=== PATIENT | male | born 1940 | race Caucasian/White ===

== ENCOUNTER → 2016-06-28 | Outpatient (CLI) | payer MEDICARE, OTHER ==
[~2016-06-28] MED LIST: ACET1TAB43 PO; ASCO500T20 PO; CIPR500T78 PO; DOXA4TAB2 PO; MULT-1029 PO; NAPR220C11 PO; NF-TYLARTH PO; SILD25TA PO
--- OUTSIDE RECORDS SUMMARY | 2016-06-28 10:19 | XMS REPORT | Continuity of Care Document ---
Author Author [facility] Organization [facility] Address Unknown Phone Unavailable Allergies Active Description Code Type Severity Reaction Onset Reported/Identified Relationship to Patient Clinical Status Yes Sulfa (Sulfonamide Antibiotics) [id number] Drug Allergy Unknown HIVES AND ITCHI 03/18/2014 Medications Problems Date Dx Coded Attending Type Code Diagnosis Diagnosed By 03/24/2014 BELTRAN RIVERA MDANE E Ot 185 03/24/2014 BELTRAN RIVERA MDANE E Ot 185 03/24/2014 NICOLE BANKS PRATIMA E Ot V72.83 03/24/2014 NICOLE BANKS PRATIMA E Ot V74.8 03/24/2014 BELTRAN RIVERA MDANE E Ot 185 04/07/2014 NICOLE BANKS PRATIMA E Ot 185 04/07/2014 NICOLE BANKS PRATIMA E Ot V72.83 04/07/2014 NICOLE BANKS PRATIMA E Ot V74.8 04/19/2014 NICOLE BANKS PRATIMA E Ot 185 04/21/2014 NICOLE BANKS PRATIMA E Ot 185 04/21/2014 NICOLE BANKS, PRATIMA E Ot 185 04/21/2014 NICOLE BANKS, PRATIMA E Ot 185 04/23/2014 NICOLE BANKS, PRATIMA E Ot 185 06/10/2014 NICOLE BANKS, PRATIMA E Ot 185 06/21/2014 NICOLE BANKS, PRATIMA E Ot 185 12/14/2014 NICOLE BANKS, PRATIMA E Ot 185 12/14/2014 NICOLE BANKS, PRATIMA E Ot 185 12/15/2014 NICOLE BANKS PRATIMA E Ot 185 12/15/2014 NICOLE BANKS, PRATIMA E Ot 185 12/28/2014 NICOLE BANKS, PRATIMA E Ot 185 01/04/2015 NICOLE BANKS, PRATIMA E Ot 185 01/04/2015 NICOLE BANKS, PRATIMA E Ot 185 01/07/2015 NICOLE BANKS PRATIMA E Ot 185 01/19/2015 NICOLE BANKS PRATIMA E Ot 185 03/24/2015 NICOLE BANKS PRATIMA E Ot 185 07/14/2015 NICOLE BANKS PRATIMA E Ot C61 01/20/2016 PRATIMA RIVERA MD Ot C61 MALIGNANT NEOPLASM OF PROSTATE Procedures Results Test Result Range Prostate specific ag [mass/volume] in serum or plasma - 12/27/15 10:51 Prostate specific ag [mass/volume] in serum or plasma 0.23 % 0.00-4.00 Encounters ACCT No. Visit Date/Time Discharge Status Pt. Type Provider Facility Loc./Unit Complaint [id number] 12/28/2014 10:14:00 2014 23:59:59 CLS Outpatient PRATIMA RIVERA MD [facility] ONC [id number] 12/15/2014 12:51:00 2014 23:59:59 CLS Outpatient PRATIMA RIVERA MD [facility] ONC [id number] 06/21/2014 09:49:00 2014 23:59:59 CLS Outpatient PRATIMA RIVERA MD [facility] ONC [id number] 01/19/2014 08:30:00 2013 00:01:00 DIS Outpatient PRATIMA RIVERA MD [facility] ONC [id number] 03/24/2014 11:17:00 2013 17:53:00 DIS Outpatient PRATIMA RIVERA MD [facility] SDC [id number] 03/18/2014 10:13:00 2013 23:59:59 CLS Outpatient PRATIMA RIVERA MD [facility] PREOP [id number] 12/27/2015 10:42:00 ACT Outpatient PRATIMA RIVERA MD [facility] ONC [id number] 06/23/2015 14:36:00 ACT Outpatient PRATIMA RIVERA MD [facility] ONC
== END ==
LOC: ONC 10:15
PROVIDERS: ATTEND Radiology Radiation Oncology
DX: C61 Malignant neoplasm of prostate (principal)
CPT/HCPCS: 36415; 84153

== ENCOUNTER → 2016-12-18 | Outpatient (CLI) | payer MEDICARE, OTHER | LOC: ONC 10:49 | PROVIDERS: ATTEND Radiology Radiation Oncology | DX: C61 Malignant neoplasm of prostate (principal) | CPT/HCPCS: 84153 ==

== ENCOUNTER → 2017-06-20 | Outpatient (CLI) | payer MEDICARE | LOC: ONC 11:12 | PROVIDERS: ATTEND Radiology Radiation Oncology | DX: C61 Malignant neoplasm of prostate (principal) | CPT/HCPCS: 36415; 84153 ==

== ENCOUNTER → 2018-07-02 | Outpatient (CLI) | payer MEDICARE | LOC: ONC 11:14 | PROVIDERS: ATTEND Radiology Radiation Oncology | DX: C61 Malignant neoplasm of prostate (principal) | CPT/HCPCS: 36415; 84153 ==

== ENCOUNTER → 2019-06-24 | Outpatient (CLI) | payer MEDICARE | LOC: ONC 13:19 | PROVIDERS: ATTEND Radiology Radiation Oncology | DX: C61 Malignant neoplasm of prostate (principal) | CPT/HCPCS: 84153 ==

== ENCOUNTER → 2020-07-07 | Outpatient (CLI) | payer MEDICARE | LOC: ONC 10:53 | PROVIDERS: ATTEND Radiology Radiation Oncology | DX: C61 Malignant neoplasm of prostate (principal) | CPT/HCPCS: 84153 ==

== ENCOUNTER → 2021-07-20 | Outpatient (CLI) | payer MEDICARE | LOC: ONC 11:19 | PROVIDERS: ATTEND Radiology Radiation Oncology | DX: C61 Malignant neoplasm of prostate (principal) | CPT/HCPCS: 36415; 84153 ==

== ENCOUNTER 2021-07-22 11:13 | Inpatient (IN) | payer MEDICARE ==
[~2021-07-22] VITALS: Ht 170 cm; Wt 75.3 kg
[2021-07-22] MEDS ORDERED: ONDANSETRON 4 MG/2 ML (SDV) Z0FRAN IV PRN (11:15)
[2021-07-22] MEDS ORDERED: polyethylene glycoL POWDER 17 GM (MIRALAX) PACK PO PRN (11:15)
[2021-07-22] MEDS ORDERED: MELATONIN 3 MG TABLET PO PRN (11:15)
[2021-07-22] MEDS ORDERED: ANTACID SUSP 30 ML UDC (MYLANTA) PO PRN (11:15)
[2021-07-22] MEDS ORDERED: NS IV 1000 ML 1,000 ML IV SCH ×2 (11:15→12:45)
[2021-07-22] MEDS ORDERED: ACETAMINOPHEN 325 MG TABLET PO PRN (11:15)
[2021-07-22] MEDS ORDERED: ONDANSETRON 4 MG (ZOFRAN) ORAL DISSOLVE TAB PO PRN (11:15)
[2021-07-22] MEDS ORDERED: HEParin 1000 UNIT/ML (10ML VIAL) FOR BOLUS ONE (11:42)
[2021-07-22] MEDS ORDERED: VERAPAMIL 5 MG/2 ML (CALAN) VIAL IV ONE (11:42)
[2021-07-22] MEDS ORDERED: LIDOCAINE 2% 20 ML (XYLOCAINE) VIAL ONE (11:42)
[2021-07-22] MEDS ORDERED: MIDAZOLAM 5 MG/5 ML (VERSED) VIAL ONE (11:42)
[2021-07-22] MEDS ORDERED: fentaNYL INJ 100 MCG/2 ML AMP ONE (11:42)
[2021-07-22] MEDS ORDERED: NS IV 1000 ML 1,000 ML ONE (11:43)
[2021-07-22] MEDS ORDERED: NITRO DRIP 25000 MCG/D5W 250 ML IV ONE (11:43)
[2021-07-22] MEDS ORDERED: HEParin (CATH LAB) 2,000 ML IV ONE (11:44)
--- NOTE | 2021-07-22 12:03 | History & Physical-Hospitalist ---
History of Present Illness HPI/Chief Complaint Pt is an 80yoCM with a PMH of prostate cancer who presented to outside ER due to chest tightness and shortness of breath. He states that two weeks ago he was going out to feed his bulls with a 5 gallon bucket of feed when it was snowing and he got very winded and noticed significant chest tightness. It resolved with rest but continued to happen intermittently.This morning he got the same symptoms by just walking to the bathroom around 3am prompting him to seek evaluation. He was found to have an elevated HS troponin at 162 and was transferred here for cardiac evaluation. He denies any symptoms now and states they again resolved with rest. He denies any radiation of the pain,nausea, shoulder pain, weakness, or diaphoresis. Source: patient Date Seen 07/22/21 Time Seen by a Provider: 11:58 Attending Physician Jodi Glynn MD PCP Ezra Salvador MD Referring Physician Date of Admission Jul 22, 2021 at 11:19 Home Medications & Allergies Home Medications Reviewed patient Home Medication Reconciliation performed by pharmacy medication reconciliations emission technician and/or nursing. Patients Allergies have been reviewed. Allergies Allergies Coded Allergies Sulfa (Sulfonamide Antibiotics) (Unverified Allergy, Unknown, HIVES AND ITCHING, 03/18/14) Past Xqrhcsa-Pmwelr-Isgvxs Hx Patient Social History Marrital Status: Smokeless type used: Chew Smokeless Tobacco Frequency: Former User Immunizations Up To Date Date of Influenza Vaccine: Feb 10, 2014 Past Medical History Surgeries: Orthopedic (shoulder surgery) Prostate Family Medical History Reviewed Nursing Family Hx No Pertinent Family Hx Review of Systems Constitutional: No chills, No fever EENTM: no symptoms reported Respiratory: dyspnea on exertion, short of breath Cardiovascular: chest pain; No edema, No Hx of Intervention, No palpitations, No syncope Gastrointestinal: No abdominal pain, No dysphagia, No nausea, No vomiting Genitourinary: no symptoms reported Musculoskeletal: no symptoms reported Skin: no symptoms reported Psychiatric/Neurological: No Symptoms Reported Physical Exam Physical Exam Vital Signs Vital Signs - First Documented 07/22/21 07/22/21 12:55 16:21 Temp 36.8 Pulse 73 Resp 23 B/P (MAP) 122/72 Pulse Ox 94 O2 Delivery Room Air Capillary Refill : Height, Weight, BMI Height: 5'7.00" Weight: 166lbs. oz. 75.597142tz; BMI Method: General Appearance: No Apparent Distress, WD/WN HEENT: PERRL/EOMI, Moist Mucous Membranes; No Scleral Icterus (L), No Scleral Icterus (R) Neck: Normal Inspection, Supple Respiratory: Lungs Clear, No Accessory Muscle Use, No Respiratory Distress Cardiovascular: Regular Rate, Rhythm, No JVD, No Murmur Gastrointestinal: Normal Bowel Sounds, Non Tender, Soft Extremity: No Calf Tenderness, No Pedal Edema Neurologic/Psychiatric: Alert, Oriented x3, Normal Mood/Affect Results Results/Procedures Labs Patient resulted labs reviewed. 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
--- NOTE | 2021-07-22 12:52 | Consultation-Cardiology ---
HPI-Cardiology Cardiology Consultation Date of Consultation 07/22/21 Date of Admission Time Seen by Provider: 12:46 Indication: Chest pain HPI 80 years old gentleman with history of prostate cancer. Has been having dyspnea on exertion, chest pressure, was significant this morning and went to the emergency room, work-up showed normal EKG, high-sensitivity troponin [id number], he was transferred from our hospital to our emergency room. On my evaluation he reported that he is feeling better, no active chest pain, no shortness of breath at this time but has been having dyspnea on exertion. No syncope or near syncopal episodes. No claudications. Home Medications & Allergies Allergies: Coded Allergies: Sulfa (Sulfonamide Antibiotics) (Unverified Allergy, Unknown, HIVES AND ITCHING, 03/18/14) Home Medication List Reviewed: Yes CCI-Zrlmmq-Zhrmzz Hx Patient Social History Marital Status: Immunizations Up To Date Date of Influenza Vaccine: Feb 10, 2014 Past Medical History Discussed below Family Medical History Significant Family History: No Pertinent Family Hx Family Medical Hx Noncontributory Review of Systems-General Review of Systems Constitutional: see HPI; No chills, No fever EENTM: see HPI, no symptoms reported Respiratory: see HPI, dyspnea on exertion, short of breath Cardiovascular: see HPI, chest pain; No edema, No Hx of Intervention, No palpitations, No syncope Gastrointestinal: see HPI; No abdominal pain, No dysphagia, No nausea, No vomiting Genitourinary: no symptoms reported, see HPI Musculoskeletal: no symptoms reported, see HPI Skin: no symptoms reported, see HPI Psychiatric/Neurological: No Symptoms Reported, See HPI Reviewed Test Results Reviewed Test Results Lab Labs from [facility] reviewed Normal creatinine Troponin I 15 high-sensitivity Physical Exam Physical Exam Vital Signs Capillary Refill : Height, Weight, BMI Height: 5'7.00" Weight: 166lbs. oz. 75.714668ba; BMI Method: General Appearance: No Apparent Distress, WD/WN Eyes: Bilateral Eye Normal Inspection, Bilateral Eye PERRL, Bilateral Eye EOMI HEENT: PERRL/EOMI, Moist Mucous Membranes; No Scleral Icterus (L), No Scleral Icterus (R) Neck: Normal Inspection, Supple, Carotid Bruit (Left side carotid bruit) Respiratory: Lungs Clear, No Accessory Muscle Use, No Respiratory Distress Cardiovascular: Regular Rate, Rhythm, No JVD, No Murmur Gastrointestinal: Normal Bowel Sounds, Non Tender, Soft Back: Normal Inspection, No CVA Tenderness, No Vertebral Tenderness Extremity: No Calf Tenderness, No Pedal Edema Neurologic/Psychiatric: Alert, Oriented x3, Normal Mood/Affect Skin: Normal Color, Warm/Dry Lymphatic: No Adenopathy A/P-Cardiology Admission Diagnosis Non-ST elevation myocardial infarction Coronary artery disease Hypertension Hyperlipidemia Assessment/Plan Non-ST elevation myocardial infarction, coronary artery disease Cardiac catheterization was done urgently showing severe multivessel coronary artery disease, arrangement to transfer to a tertiary care center for evaluation for CABG Starting aspirin and Lovenox Hypertension, starting low-dose beta-blockers and evaluate tolerance and response Hyperlipidemia, starting Lipitor 80 mg daily History of prostate cancer History of erectile dysfunction, using Viagra Shortness of breath, probably angina equivalent TOÑITO SAINZ MD Jul 22, 2021 12:52
--- NOTE | 2021-07-22 13:01 | Cardiac Cath Report ---
Cardiac Cath Report Physician (s)/Director Network Development (s) Physician TOÑITO SAINZ MD Pre-Procedure Diagnosis Pre-Procedure Diagnosis: Acute myocardial infarction Post-Procedure Note Procedure Start Date: Jul 22, 2021 Name of Procedure: Left heart catheterization Left ventriculogram Aortic arch angiogram Findings/Procedure Note PROCEDURE NOTE: 80 years old gentleman with no significant past medical history admitted with non-ST elevation myocardial infarction, transferred from [facility]. Emergency cardiac catheterization was advised. After explaining the procedure to the patient, all pros and cons were explained, all questions were answered. The patient signed the consent and then he was placed on the cardiac catheterization laboratory. Groin was prepped SL fashion local anesthesia was used. Sheath placed in the right radial artery, [place] catheter was prolapsed to the left ventricular cavity, left ventriculogram was done, pressure was measured, pullback LV LV to aorta was done, engaged the left coronary system and angiogram was done. Catheter was exchanged and used Amie right catheter and engaged the right coronary system and angiogram was done. Pigtail was advanced to the aortic arch and aortic arch angiogram was done. At the end of the procedure the sheath was removed. Vascular band was used FINDINGS: Hemodynamics LV 87/4, end-diastolic pressure of 4 Aorta 85/59 mean of 69 ANATOMY: Left Main is free of obstructive disease Left Anterior Descending has severe stenosis at the proximal and midportion involving the diagonal branch. Left Circumflex has multiple segment of severe stenosis at the proximal circumflex artery, moderate disease distally Right Coronary Artery has multiple segment of severe stenosis at the proximal mid and distal portion LV Gram was done showing normal left ventricular size and systolic function estimate ejection fraction 60% Aorta evaluation done with aortic arch angiogram showing normal aortic arch, no dissection or aneurysm, normal origin of the brachiocephalic artery with mild calcification and tortuosity, mild calcification in the proximal left carotid artery, normal left subclavian artery. CONCLUSION: 1. Severe multivessel disease involving long segment in the proximal LAD extending to the midportion involving diagonal branch, severe stenosis in the proximal circumflex artery, multiple segment of severe stenosis in the proximal and mid and distal right coronary artery 2. Normal left ventricular size and systolic function estimate ejection fraction 60% 3. Normal aortic arch, no dissection or aneurysm was seen, calcification in the proximal portion of the brachiocephalic artery and left carotid artery, nonobstructive disease DISCUSSION AND RECOMMENDATION: Patient was started on aspirin, Lovenox, metoprolol and Lipitor, arrangement for transfer for evaluation for CABG HOSPITAL COURSE: Patient was admitted to ICU and transferred to the Manager Reporting urgently for angiogram, findings were described above. I contacted Dr. BRIONES in [facility] and will arrange to transfer for evaluation for CABG. After discussing the management plan with Dr. briones, he reviewed his cath films and recommended transferring him to a higher level of care, [place] or [place]. I contacted [facility] and arrange for a transfer for evaluation for CABG with Dr. Terry Anesthesia Type: Conscious Sedation Estimated blood loss (mL): 25 ml Contrast Amount: 55 ml Total Radiation Dose: 450 mGy Post-Procedure Diagnosis Post-operative diagnosis: FINAL DIAGNOSIS Non-ST elevation myocardial infarction Coronary artery disease Peripheral arterial disease with carotid plaques Hyperlipidemia (1) NSTEMI (non-ST elevated myocardial infarction) TOÑITO SAINZ MD Jul 22, 2021 13:01
[2021-07-22] MEDS ORDERED: ENOXAPARIN 80 MG/0.8 ML (LOVENOX) SYR SC SCH (15:00)
[2021-07-22] MEDS ORDERED: meTOprolol TARTRATE 25 MG (LOPRESSOR) TABLET PO SCH (21:00)
[2021-07-23] MEDS ORDERED: ASPIRIN E.C. 81 MG (ECOTRIN) TAB PO SCH (09:00)
== END 2021-07-22 17:50 | disposition short-term general hospital (02) | DRG 282 ==
LOC: EDSTATUS 11:13 → ER 11:14 → ICU 11:19 → UNDOADMIN 11:19 → CSD 11:19
PROVIDERS: ADMIT Family Medicine; ATTEND Family Medicine
PROC: 4A023N7 Measurement of Cardiac Sampling and Pressure, Left Heart, Percutaneous Approach (ICD-10-PCS; principal; 2021-07-22)
PROC: B2111ZZ Fluoroscopy of Multiple Coronary Arteries using Low Osmolar Contrast (ICD-10-PCS; 2021-07-22)
PROC: B2151ZZ Fluoroscopy of Left Heart using Low Osmolar Contrast (ICD-10-PCS; 2021-07-22)
PROC: B3101ZZ Fluoroscopy of Thoracic Aorta using Low Osmolar Contrast (ICD-10-PCS; 2021-07-22)
DX: I21.4 Non-ST elevation (NSTEMI) myocardial infarction (principal); I25.119 Atherosclerotic heart disease of native coronary artery with unspecified angina pectoris; I10 Essential (primary) hypertension; E78.5 Hyperlipidemia, unspecified; N52.9 Male erectile dysfunction, unspecified; I73.9 Peripheral vascular disease, unspecified; Z85.46 Personal history of malignant neoplasm of prostate; Z87.891 Personal history of nicotine dependence
CPT/HCPCS: 36221; 93458